=== PATIENT | female | born 1950 | race Caucasian/White ===

== ENCOUNTER → 2016-08-18 | Outpatient (CLI) | payer MEDICARE, BC ==
[~2016-08-18] MED LIST: MULT-65 PO; SALM10002
--- NOTE | 2016-08-18 14:40 | RADRPT ---
EXAM DATE/TIME: 08/18/2016 14:17 [place] COMPARISON: No previous studies available for comparison. INDICATIONS : Evaluate for penumonia, pneumothroax, or communicable disease. Pre op for abdominal mass. MEDICAL HISTORY : None. SURGICAL HISTORY : None. ENCOUNTER: Initial ACUITY: 1 day PAIN SCORE: 0/10 LOCATION: chest FINDINGS: PA and lateral views of the chest demonstrate the lungs to be symmetrically aerated without evidence of mass, infiltrate or effusion. The cardiomediastinal contours are unremarkable. Osseous structure s are intact. CONCLUSION: Normal examination for a patient of this age. Alexander Sandhu MD on August 18, 2016 at 14:38 Board Certified Radiologist. This report was verified electronically.
[2016-08-18 15:11] LABS: AUTOMATED NEUTROPHIL # 3.8 TH/MM3 (1.8-7.7); BASOPHIL % 0.5 % (0.0-2.0); EOSINOPHIL # 0.3 TH/MM3 (0-0.4); EOSINOPHIL % 4.1 % (0.0-4.0); HEMO FLAGS DIFF FINAL; LYMPH % 37.2 % (9.0-44.0); LYMPHOCYTE # 2.8 TH/MM3 (1.0-4.8); MEAN CELL VOLUME 88.3 FL (80.0-100.0); MEAN CORPUSCULAR HEMOGLOBIN 28.4 PG (27.0-34.0); MEAN CORPUSCULAR HGB CONC 32.2 % (32.0-36.0); MONO % 7.3 % (0.0-8.0); NEUT % 50.9 % (16.0-70.0); PLATELET COUNT 268 TH/MM3 (150-450); RED BLOOD COUNT 4.87 MIL/MM3 (4.00-5.30); RED CELL DISTRIBUTION WIDTH 13.5 % (11.6-17.2); WHITE BLOOD COUNT 7.5 TH/MM3 (4.0-11.0)
[2016-08-18 15:16] LABS: BACTERIA, URINE OCC /hpf; BLOOD, URINE NEG (NEG); COMMENT (UR) CULTURE INDICATED; CULTURE IF INDICATED CULTURE INDICATED; GLUCOSE,URINE NEG (NEG); KETONE, URINE NEG (NEG); NITRITE,URINE NEG (NEG); SQUAMOUS EPITHELIAL CELL URINE 3 /hpf (0-5); URINE COLOR YELLOW (YELLW/STRAW)
[2016-08-18 15:25] LABS: ALT (GPT) 26 U/L (10-53); ANION GAP 7 MEQ/L (5-15); AST (GOT) 13 U/L (15-37); BICARBONATE 26.8 MEQ/L (21.0-32.0); BLOOD UREA NITROGEN 15 MG/DL (7-18); CHLORIDE 107 MEQ/L (98-107); GLOMERULAR FILTRATION RATE 56 ML/MIN (>89); POTASSIUM 4.1 MEQ/L (3.5-5.1); SODIUM (NA) 141 MEQ/L (136-145)
[2016-08-18 15:27] LABS: ALKALINE PHOSPHATASE 76 U/L (45-117); TOTAL BILIRUBIN ADULT 0.4 MG/DL (0.2-1.0)
--- NOTE | 2016-08-19 17:40 | EKG ---
Date Performed: 08/18/2016 Time Performed: 13:39:23 PTAGE: 65 years EKG: Sinus rhythm INCOMPLETE RIGHT BUNDLE BRANCH BLOCK BORDERLINE ECG NO PREVIOUS TRACING DOCTOR: Antonietta Sierra Interpretating Date/Time 08/19/2016 17:36:22
== END ==
LOC: CPRE 12:48
PROVIDERS: ATTEND Obstetrics & Gynecology
DX: Z01.812 Encounter for preprocedural laboratory examination (principal); Z01.810 Encounter for preprocedural cardiovascular examination; R19.00 Intra-abdominal and pelvic swelling, mass and lump, unspecified site; R78.89 Finding of other specified substances, not normally found in blood; I45.10 Unspecified right bundle-branch block
CPT/HCPCS: 36415; 71020; 80053; 81001; 85025; 86304; 87086; 93005

== ENCOUNTER 2016-08-25 06:00 | Inpatient (IN) | payer MEDICARE, BC ==
[~2016-08-25] VITALS: Ht 162.6 cm; Wt 95.3 kg
[~2016-08-25 06:00] MED LIST changes: -SALM10002
[2016-08-25] MEDS ORDERED: SALM10002 (06:30)
[2016-08-25] MEDS ORDERED: LACTATED RINGER'S 1000 ML IV PRN (06:30)
[2016-08-25] MEDS ORDERED: SODIUM CHLORID 0.9% 500 ML IV PRN (06:30)
[2016-08-25] MEDS ORDERED: POVIDONE IODINE 5% (ANTISEPSIS KIT) 4 APPLICATIONS EACH NARE PRN (06:30)
[2016-08-25] MEDS ORDERED: METOPROLOL TARTRATE 25 MG TAB PO PRN (06:30)
[2016-08-25] MEDS ORDERED: CHLORHEXIDINE GLUCONATE 2 % 1 PACK (2 CLOTHS) TOPICAL PRN (06:30)
[2016-08-25] MEDS ORDERED: INSULIN HUMAN REGULAR 1,000 UNITS/10 ML VIAL SQ PRN (06:30)
[2016-08-25 06:34] VITALS: BP 102/54; PULSE 77; RESP 16; TEMP 97.9; O2SAT 96
[2016-08-25] MEDS ORDERED: DEXAMETHASONE SOD PHOS 4 MG/ML VIAL ONE (07:25)
[2016-08-25] MEDS ORDERED: MIDAZOLAM HCL 2 MG/2 ML VIAL ONE (07:25)
[2016-08-25] MEDS ORDERED: fentaNYL CITRATE 250 MCG/5 ML AMP ONE (07:25)
[2016-08-25] MEDS ORDERED: ACETAMINOPHEN 1000 MG/100 ML VIAL IV ONE (07:26)
[2016-08-25] MEDS ORDERED: SUGAMMADEX SODIUM 200 MG/2 ML VIAL IV PUSH ONE ×2 (11:48)
[2016-08-25] MEDS ORDERED: LACTATED RINGER'S 1000 ML INJ 2,000 ML IV ONE (12:00)
[2016-08-25] MEDS ORDERED: PROPOFOL 200 MG/20 ML AMP IV ONE (12:00)
[2016-08-25] MEDS ORDERED: ONDANSETRON HCL 4 MG/2 ML VIAL IV PUSH ONE (12:00)
[2016-08-25] MEDS ORDERED: HYDROmorphone HCL PF 2 MG/ML VIAL ONE (12:06)
[2016-08-25] MEDS ORDERED: ZOLPIDEM TARTRATE 5 MG TAB PO PRN (13:15)
[2016-08-25] MEDS ORDERED: ONDANSETRON HCL 4 MG/2 ML VIAL IVP PRN (13:15)
[2016-08-25] MEDS ORDERED: PROMETHAZINE INJ 25 MG/ML VIAL IM PRN (13:15)
[2016-08-25] MEDS ORDERED: PROMETHAZINE HCL 25 MG TAB PO PRN (13:15)
[2016-08-25] MEDS ORDERED: oxyCODONE/ACETAMINOPHEN 5 MG/325 MG TAB PO PRN ×2 (13:15)
[2016-08-25] MEDS ORDERED: diphenhydrAMINE HCL 25 MG CAP PO PRN (13:15)
[2016-08-25] MEDS ORDERED: ONDANSETRON ODT 4 MG TAB PO PRN (13:15)
[2016-08-25] MEDS ORDERED: SODIUM CHLORIDE 0.9% FLUSH 10 ML FLUSH IV FLUSH PRN (13:15)
[2016-08-25] MEDS ORDERED: MORPHINE SULFATE 4 MG/ML INJ ONE (13:39)
--- NOTE | 2016-08-25 13:54 | MP ---
cc: CRISSY BURNETT MD, R. JOHN MD DATE OF SURGERY: 08/25/2016 PREOPERATIVE DIAGNOSIS Large pelvic mass, rule out ovarian malignancy. POSTOPERATIVE DIAGNOSIS Massive adhesions, large peritoneal defect, enlarged left ovary. PROCEDURE 1. Laparoscopic lysis of adhesions, which was extensive. I performed lysis of adhesions for 1-1/[address] Burnett performed lysis of adhesions for 2-1/2 hours. 2. Left ureterolysis. 3. Laparotomy with left salpingo-oophorectomy and repair of a large peritoneal defect with placement of Interceed. COMPLICATIONS A long case, five hours. COUNTS Correct. ESTIMATED BLOOD LOSS 100 cc. FLUIDS Crystalloids. CONDITION The patient tolerated the procedure and went to the recovery room in good condition. DETAILS OF PROCEDURE The patient was taken to the operating room, identified by name band and verbally, given a general anesthetic, prepped and draped in the usual fashion for abdominal surgery. A timeout was taken and all agreed. Once this had been accomplished we placed a sponge stick in the vagina. Examination under anesthesia was carried out. A urinary catheter was placed in the bladder. A small supraumbilical incision was placed approximately 5-6 cm above the umbilicus and a 5 mm trocar was inserted without difficulty. Pneumoperitoneum was created with 3 liters of CO2. At the start of the case there was a large pelvic mass that could be felt. This turned out to be massive adhesions encasing the left ovary completely. We began with giving a second puncture inferior lateral to the umbilicus on the right and a 12 mm trocar on the left. We attempted to do lysis of adhesions which was extensive. After an hour and a half there was some very firm adhesions to the bowel to the anterior abdominal wall and I called a general surgeon in. Dr. Crissy Burnett came in and he will dictate his portion of the surgery. However, he performed over two hours of lysis of adhesions to try to get these adhesions down and make sure there was no hernia, but there was a large peritoneal defect. When he had done the best he could, went back in with the laparoscope and tried to remove that left ovary which was quite large. It was stuck to the pelvic sidewall and we opened up the ureter in this area to avoid injury since it was plastered against the pelvic sidewall and dissected that down around the infundibulopelvic ligament. Once this had been accomplished, I attempted to free up the ovary. There were some very firm adhesions posteriorly and to the pelvic sidewall. After another hour of doing this it was decided this was not going to work. I could not find the right ovary either. We made a Pfannenstiel incision at this point, taken down to the fascia. The fascia was taken off the rectus muscle by blunt and sharp dissection. The rectus muscles were spread bluntly. The bowels were packed back and an O'Petros-O'Mc self-retaining retractor was placed. Indeed there were very firm adhesions around the ovary and these were taken down by blunt dissection using the surgeon's hand. This was quite difficult and took a bit of time. Using scissors, sharp and blunt dissection we did finally free up the ovary. The ovary came out intact. We did use a tenaculum laparoscopically then punctured the ovary; however, I do not think there was any ovarian malignancy present. We used the tenaculum in an effort not to open her but this was not the case. Once we had removed the left ovary we start taking down the adhesions around the right infundibulopelvic ligament. There were massive adhesions there and they were adhesed firmly to the right pelvic sidewall. Again in trying to palpate around the area where the ovary should be I could not feel an ovary or see an ovary in this area. At this point small bleeders were coagulated. Again we tried to move the bowel around to try to find the right ovary. Interestingly the ovary was not seen on the ultrasound nor on the CT scan. I think it may have been removed at the time of hysterectomy 20 years ago. At this point irrigation was again used. We used quite a bit of hydrodissection during the lysis of adhesions, approximately 4 liters worth of fluid. Because of this we straightened her out of Trendelenburg, removed most of the fluid and again checked the bowel continuously. Dr. Pipe Salter stepped in as well to make sure that everything was going okay. I inspected the bowel carefully. There was some serosal abrasions but nothing that went into the muscularis at all. [place] good about this. We grabbed the omentum. The omentum was folded over. We lysed those adhesions to allow the omentum to fully cover the anterior abdominal wall of the abdomen and pelvis. We then placed some Interceed over the omentum and closed the large peritoneal defect with 2-0 Vicryl in a running fashion with excellent results. We also pulled the rectus muscles together with this layer as well. The fascia was then identified and the fascia was closed with a #1 PDS in a running fashion. The subcu was repaired with 2-0 Vicryl and the skin was repaired with 3-0 Vicryl in a subcuticular fashion. The four other laparoscopic ports were also closed with 4-0 Vicryl. She tolerated the procedure well. The case lasted a good 5 hours. She will be admitted to the hospital and watched carefully. R. Maycol Anton MD RJV/BT /1:19 PM /1:38 PM
[2016-08-25] MEDS ORDERED: DO NOT ADM ANY ANTICOAGULANT DRUGS PRN (15:45)
[2016-08-25 16:00] VITALS: BP 138/58; PULSE 101; RESP 16; TEMP 98.3
[2016-08-25] MEDS: HYDROmorphone HCL PF 1 MG/ML VIAL IVP PRN (16:21)
[2016-08-25 20:00] VITALS: BP 113/68; PULSE 96; RESP 18; TEMP 98.1
[2016-08-25] MEDS ORDERED: SODIUM CHLORIDE 0.9% FLUSH 10 ML FLUSH IV FLUSH SCH (21:00)
[2016-08-25] MEDS: LACTATED RINGER'S 1000 ML INJ 1,000 ML IV SCH (21:51)
[2016-08-26] VITALS (8 sets, daily range): BP systolic 106–133; BP diastolic 52–67; PULSE 110–125; RESP 16–20; TEMP 97.7–99.6; O2SAT 95
[2016-08-26] MEDS: HYDROmorphone HCL PF 1 MG/ML VIAL IVP PRN (00:22)
[2016-08-26 06:38] LABS: BICARBONATE 25.4 MEQ/L (21.0-32.0); POTASSIUM 5.2 MEQ/L (3.5-5.1)
[2016-08-26] MEDS: LACTATED RINGER'S 1000 ML INJ 1,000 ML IV SCH (06:43)
[2016-08-26 06:51] LABS: BASOPHIL % 0.1 % (0.0-2.0); EOSINOPHIL % 0.1 % (0.0-4.0); HEMATOCRIT 31.2 % (35.0-46.0); HEMO FLAGS DIFF FINAL; LYMPH % 15.8 % (9.0-44.0); LYMPHOCYTE # 1.9 TH/MM3 (1.0-4.8); MEAN CELL VOLUME 89.8 FL (80.0-100.0); MEAN CORPUSCULAR HEMOGLOBIN 28.9 PG (27.0-34.0); MEAN CORPUSCULAR HGB CONC 32.2 % (32.0-36.0); PLATELET COUNT 263 TH/MM3 (150-450); RED BLOOD COUNT 3.48 MIL/MM3 (4.00-5.30); RED CELL DISTRIBUTION WIDTH 14.2 % (11.6-17.2)
--- NOTE | 2016-08-26 07:54 | HHI.PR ---
Subjective Remarks Doing well, pain is controlled. Tolerating clear liquid diet No chest pain or SOB Some flatus now. No nausea. Objective Vital Signs Date Time Temp Pulse Resp B/P Pulse Ox O2 Delivery O2 Flow Rate FiO2 08/26/16 04:00 99.2 120 20 116/67 08/26/16 00:00 98.3 110 18 106/62 08/25/16 20:00 98.1 96 18 113/68 08/25/16 16:00 98.3 101 16 138/58 08/25/16 15:30 92 16 109/67 97 Nasal Cannula 2 08/25/16 15:00 90 16 104/57 96 Nasal Cannula 2 08/25/16 14:30 86 16 121/56 97 Nasal Cannula 2 08/25/16 14:15 92 16 123/58 96 Nasal Cannula 2 08/25/16 14:00 94 16 123/61 95 Nasal Cannula 3 08/25/16 13:45 86 16 124/64 97 Nasal Cannula 3 08/25/16 13:30 98.8 88 16 110/61 94 Simple Mask 6 I/O 08/25/16 08/25/16 08/25/16 08/26/16 08/26/16 08/26/16 07:00 15:00 23:00 07:00 15:00 23:00 Intake Total 100 ml 600 ml 725 ml Output Total 100 ml 1100 ml Balance 0 ml 600 ml -375 ml Intake Oral 200 ml 200 ml IV Total 100 ml 400 ml 525 ml Output Urine Total 100 ml 1100 ml Result Diagram: 08/26/16 0459 08/26/16 0459 Other Results Chest is clear CV RRR slg tachycardic. Abd is soft, not distended. Fair BS Ext No CCE Assessment and Plan Assessment and Plan POD #1 S/P left SO and massive MEME surgery was 5 hours long Will advance diet slowly and ambulate today. Continue IV fluids. Tachycardic Uncertain etiology will follow. Mane Anton MD Aug 26, 2016 07:54
[2016-08-26] MEDS: IBUPROFEN 600 MG TAB PO PRN ×2 (13:00→19:56)
--- NOTE | 2016-08-26 17:36 | HHI.PR ---
Subjective Subjective Notes Resting in bed Has been OOB twice today Painful but tolerable Objective Vitals/I&O Vital Signs Date Time Temp Pulse Resp B/P Pulse Ox O2 Delivery O2 Flow Rate FiO2 08/26/16 16:00 98.3 125 18 114/63 08/25/16 15:30 97 Nasal Cannula 2 Labs Laboratory Tests Test 08/26/16 04:59 White Blood Count 12.0 Red Blood Count 3.48 Hemoglobin 10.1 Hematocrit 31.2 Mean Corpuscular Volume 89.8 Mean Corpuscular Hemoglobin 28.9 Mean Corpuscular Hemoglobin 32.2 Concent Red Cell Distribution Width 14.2 Platelet Count 263 Mean Platelet Volume 8.3 Neutrophils (%) (Auto) 75.0 Lymphocytes (%) (Auto) 15.8 Monocytes (%) (Auto) 9.0 Eosinophils (%) (Auto) 0.1 Basophils (%) (Auto) 0.1 Neutrophils # (Auto) 9.0 Lymphocytes # (Auto) 1.9 Monocytes # (Auto) 1.1 Eosinophils # (Auto) 0.0 Basophils # (Auto) 0.0 CBC Comment DIFF FINAL Differential Comment Sodium Level 143 Potassium Level 5.2 Chloride Level 110 Carbon Dioxide Level 25.4 Anion Gap 8 Blood Urea Nitrogen 18 Creatinine 1.13 Estimat Glomerular Filtration 48 Rate Random Glucose 129 Calcium Level 7.5 Cardiovascular: Regular Lungs: Clear Abdomen: Other (soft; tender to palpation ) Extremities: No edema A/P Assessment and Plan 65 year old female POD1 LEFT SO (Dr. Anton) and extensive MEME (Dr. Burnett) -Tolerating clears -OOB and mobilize -IS -Pain control -SCDs Aleida Landaverde Aug 26, 2016 17:36
[2016-08-27] MEDS: LACTATED RINGER'S 1000 ML INJ 1,000 ML IV SCH (03:06)
[2016-08-27 03:15] VITALS: BP 105/66; PULSE 103; RESP 16; TEMP 98.5; O2SAT 95
--- NOTE | 2016-08-27 07:28 | HHI.PR ---
Subjective Remarks Doing well, pain is controlled. Tolerating clear liquid diet No chest pain or SOB good flatus and hungry. Objective Vital Signs Date Time Temp Pulse Resp B/P Pulse Ox O2 Delivery O2 Flow Rate FiO2 08/27/16 03:15 98.5 103 16 105/66 95 08/26/16 23:35 90 Nasal Cannula 2.00 08/26/16 23:20 98.9 112 16 114/59 08/26/16 22:10 99.5 95 08/26/16 19:30 99.4 125 20 121/59 08/26/16 16:00 98.3 125 18 114/63 08/26/16 12:40 99.6 125 18 116/52 I/O 08/26/16 08/26/16 08/26/16 08/27/16 08/27/16 08/27/16 07:00 15:00 23:00 07:00 15:00 23:00 Intake Total 725 ml 1730 ml Output Total 1100 ml 200 ml 1175 ml 900 ml Balance -375 ml -200 ml -1175 ml 830 ml Intake Oral 200 ml 530 ml IV Total 525 ml 1200 ml Output Urine Total 1100 ml 200 ml 1175 ml 900 ml # Bowel Movements 0 Result Diagram: 08/26/16 0459 08/26/16 0459 Objective Remarks Chest is clear CV RRR still slg tachycardic but improving ABd is soft and surgically tender. good BS today There are blisters under the steristrips today...allergic rx Ext no cce Assessment and Plan Assessment and Plan POD #2 S/P left SO and massive MEME surgery was 5 hours long Will advance diet and shower today D/C IV fluids Anemia will start fe soon. Mane Anton MD Aug 27, 2016 07:28
[2016-08-27 07:30] VITALS: PULSE 107; RESP 16; TEMP 98.3; O2SAT 95
[2016-08-27] MEDS: IBUPROFEN 600 MG TAB PO PRN ×2 (10:45→22:59)
[2016-08-27 12:30] VITALS: BP 129/71; PULSE 108; RESP 16; TEMP 98.3; O2SAT 96
[2016-08-27 16:30] VITALS: BP 126/69; PULSE 93; RESP 16; TEMP 98.7; O2SAT 99
--- NOTE | 2016-08-27 17:07 | HHI.PR ---
Subjective Subjective Notes Ambulating in room No issues Objective Vitals/I&O Vital Signs Date Time Temp Pulse Resp B/P Pulse Ox O2 Delivery O2 Flow Rate FiO2 08/27/16 12:30 98.3 108 16 96 08/27/16 03:15 105/66 08/26/16 23:35 Nasal Cannula 2.00 Cardiovascular: Regular Lungs: Clear Abdomen: Non-distended, Other (incisions c/d/i ) Extremities: No edema A/P Assessment and Plan 65 year old female POD2 LEFT SO (Dr. Anton) and extensive MEME (Dr. Burnett) -Tolerating regular diet -Abd binder -OOB and mobilize -IS -Pain control -SCDs Aleida Landaverde Aug 27, 2016 17:07
[2016-08-27 19:40] VITALS: BP 133/77; PULSE 105; RESP 20; TEMP 98.5; O2SAT 99
[2016-08-28 08:00] VITALS: BP 123/76; PULSE 84; RESP 16; TEMP 98.1
--- NOTE | 2016-08-28 13:01 | HHI.PR ---
Subjective Remarks Doing well, pain is controlled. Tolerating diet well. No chest pain or SOB good BM today Objective Vital Signs Date Time Temp Pulse Resp B/P Pulse Ox O2 Delivery O2 Flow Rate FiO2 08/28/16 08:00 98.1 84 16 123/76 08/27/16 21:20 Room Air 08/27/16 19:40 98.5 105 20 133/77 99 08/27/16 16:30 98.7 93 16 126/69 99 I/O 08/27/16 08/27/16 08/27/16 08/28/16 08/28/16 08/28/16 06:59 14:59 22:59 06:59 14:59 22:59 Intake Total 1730 ml Output Total 900 ml Balance 830 ml Intake Oral 530 ml IV Total 1200 ml Output Urine Total 900 ml # Bowel Movements 0 Result Diagram: 08/26/16 0459 08/26/16 0459 Objective Remarks Chest is clear CV RRR still slg tachycardic but improving ABd is soft and surgically tender. 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 Home today. Mane Anton MD Aug 28, 2016 13:01
--- NOTE | 2016-08-28 13:21 | HHI.DCPOC ---
Discharge Care Plan Diagnosis: (1) S/P oophorectomy Report Symptoms to Your Doctor -Temperature above 100.5 degrees -Redness, of incision or excessive or foul smelling drainage -Unusual pain or calf pain -Increased vaginal bleeding -Painful or difficulty urinating -Feelings of extreme sadness or anxiety after 2 weeks Goals to Promote Your Health * To prevent worsening of your condition and complications * To maintain your health at the optimal level Directions to Meet Your Goals Take your medications as prescribed Follow your dietary instruction Follow activity as directed Ensure plenty of rest for recovery Drink fluids for hydration Keep your appointments as scheduled Take your immunizations and boosters as scheduled If your symptoms worsen call your PCP, if no PCP go to Urgent Care Center or Emergency Room Smoking is Dangerous to Your Health. Avoid second hand smoke Call the 24-hour crisis hotline for domestic abuse at Mane Anton MD Aug 28, 2016 13:21
--- NOTE | 2016-08-31 06:11 | MP ---
cc: SILVIA ANTON LARS S. MD DATE OF SURGERY 08/25/2016 PREOPERATIVE DIAGNOSES Pelvic mass. Multiple masses. Abdominal adhesions. POSTOPERATIVE DIAGNOSES Pelvic mass. Multiple masses. Abdominal adhesions. PROCEDURE PERFORMED Laparoscopic lysis of adhesions greater than 2-1/[address] Chirag Burnett [employer] Dr. Silvia Anton COMPLICATIONS None. WOUND CLASSIFICATION Clean. ESTIMATED BLOOD LOSS 100 cc. DRAINS None. CONDITION Patient stable to PACU. FINDINGS Multiple adhesions to the lower pelvis, anterior peritoneum. Large left ovary. IV FLUIDS See anesthesia sheet. ANESTHESIA GETA. SPECIMENS None. INDICATION The patient is a 65-year-old female who presented with concern for intraabdominal mass of pelvic pathology. The patient was already intubated in the OR with intraoperative consult to general surgery for assistance with lysis of adhesions and assistance in exposure of the ovaries with possible ovarian mass and large peritoneal defect. DETAILS OF PROCEDURE The patient had already been intubated, placed in supine position and had undergone an operative time-out. She had already been prepped and padded and already placed in Trendelenburg position. Consultation to myself for assistance and identification of the ovaries as there were multiple adhesions to the small bowel and a portion of sigmoid colon. Further, there was a peritoneal defect needing assistance for closure. Two ports, 5 mm, were already placed. Two other ports were placed, one in the left lower quadrant, 12-mm port, followed by a right mid 5-mm port. Meticulous dissection continued to assist in achieving mobilization of the small bowel which was intimately adhered down in the pelvis. With the assistance of harmonic scalpel and primarily Endoshears, continued lysis of adhesions for mobilization and identification. The anterior peritoneum was reflected downwards and this was done in somewhat of a lateral to medial direction. Upon further dissection, the left ovary was identified and noted to be significantly enlarged and down in the left lower pelvis. At this point also further dissection to the right lower pelvis was done in order to again further mobilize and expose the right ovary as well. The right ovary was not successful in being identified. The case was again transferred back to Dr. Anton for continued removal of enlarged left ovary. After further attempts and approximate 5-hour case duration, decision at this point was made to convert to an open exploration. Completion of the procedure was done by Dr. Anton. Dr. Anton to dictate his portion of the procedure. The patient tolerated the procedure well. There was no intraoperative complication. All lap and instrument counts were correct at the end of the procedure. MD BALTAZAR Jarquin/UNA /9:04 PM /6:04 AM
== END 2016-08-28 14:10 | disposition home or self-care (01) | DRG 743 ==
LOC: HSDC 06:00 → EDUNIT# 08:00 → H1EA 15:50
PROVIDERS: ADMIT Obstetrics & Gynecology; ATTEND Obstetrics & Gynecology
PROC: 0UN14ZZ Release Left Ovary, Percutaneous Endoscopic Approach (ICD-10-PCS; 2016-08-25)
PROC: 0WUF0JZ Supplement Abdominal Wall with Synthetic Substitute, Open Approach (ICD-10-PCS; 2016-08-25)
PROC: 0UT60ZZ Resection of Left Fallopian Tube, Open Approach (ICD-10-PCS; 2016-08-25)
PROC: 0TN78ZZ Release Left Ureter, Via Natural or Artificial Opening Endoscopic (ICD-10-PCS; 2016-08-25)
PROC: 0DN84ZZ Release Small Intestine, Percutaneous Endoscopic Approach (ICD-10-PCS; 2016-08-25)
PROC: 0DNT0ZZ (ICD-10-PCS; principal; 2016-08-25 08:03)
PROC: 0UT10ZZ Resection of Left Ovary, Open Approach (ICD-10-PCS; 2016-08-25 08:03)
DX: D27.1 Benign neoplasm of left ovary (principal); E66.9 Obesity, unspecified; D64.9 Anemia, unspecified; N73.6 Female pelvic peritoneal adhesions (postinfective); Z53.31 Laparoscopic surgical procedure converted to open procedure; R00.0 Tachycardia, unspecified; S30.821A Blister (nonthermal) of abdominal wall, initial encounter; Y84.9 Medical procedure, unspecified as the cause of abnormal reaction of the patient, or of later complication, without mention of misadventure at the time of the procedure; Y92.239 Unspecified place in hospital as the place of occurrence of the external cause; Z68.36 Body mass index [BMI] 36.0-36.9, adult
CPT/HCPCS: 80048; 85025; 88112; 88305; 88307; 94150; C1765; J0131; J1100; J1170; J2250; J2270; J2405; J2550; J3010; J7120

== ENCOUNTER 2016-09-04 19:36 | Inpatient (IN) | payer MEDICARE, BC ==
[~2016-09-04] VITALS: Ht 162.6 cm; Wt 94.5 kg
[~2016-09-04 19:36] MED LIST changes: +SALM10002
[2016-09-04 19:38] VITALS: BP 134/87; PULSE 119; RESP 16; TEMP 100.2; O2SAT 98
[2016-09-04] MEDS ORDERED: SODIUM CHLOR 0.9% 1000 ML INJ 1,000 ML IV SCH ×2 (20:37→21:57)
[2016-09-04 20:42] VITALS: BP 148/72; PULSE 112; RESP 16; O2SAT 98
[2016-09-04] MEDS ORDERED: VANCOMYCIN INJ 1,000 MG in SODIUM CHLOR 0.9% 250 ML INJ 250 ML IV ONE (21:00)
[2016-09-04] MEDS ORDERED: PIPERACIL-TAZO 3.375 GM PREMIX 50 ML IV ONE (21:00)
--- NOTE | 2016-09-04 21:26 | PD ---
HPI Chief Complaint: Fever Time Seen by Provider: 21:25 Travel History International Travel<30 days: No Contact w/Intl Traveler<30days: No Traveled to known affect area: No History of Present Illness HPI 65-year-old female that presents to the ED for evaluation of fever and bleeding. 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 This was removed and he appeared to be benign. Per patient she had also surgery by Dr. Burnett at the same time for additions as well as Dr. Llanes. She is not that ever since the surgery she's had chills but no actual fever. She only came today because she had bleeding from one of the openings on the right lower quadrant. Per patient she's been doing what she is supposed to but she is concerned that is getting worse. Per patient the pain is 5 out of 10 but she is not too concerned about it. Per patient she is more concerned about the bleeding. She also noted today when she was here that she had a fever. She denies any nausea or vomiting other than yesterday. No bowel movement issues sustained that she had a bowel movement today. No urinary symptoms. No cough or runny nose. No sick contacts. She has not contacted her surgeon since this happened. PFSH Past Medical History Cancer: No Cardiovascular Problems: No Diabetes: No Endocrine: No Genitourinary: No Hepatitis: No Hiatal Hernia: No Immune Disorder: No Musculoskeletal: No Neurologic: No Psychiatric: No Reproductive: Yes (MASS) Respiratory: No Thyroid Disease: No ?: Not Past Surgical History Abdominal Surgery: No AICD: No Body Medical Devices: RIGHT BREAST MARKER Cardiac Surgery: No Ear Surgery: No Endocrine Surgery: No Eye Surgery: No Genitourinary Surgery: No Gynecologic Surgery: Yes (HYSTERECTOMY, BREAST BIOPSY RIGHT) Joint Replacement: No Oral Surgery: Yes (TEETH REMOVAL, TONSILLECTOMY) Pacemaker: No Thoracic Surgery: No Other Surgery: Yes Social History Alcohol Use: Yes Tobacco Use: No Substance Use: No Allergies-Medications (Allergen,Severity, Reaction): Coded Allergies: No Known Allergies (Unverified , 09/04/16) Reported Meds & Prescriptions Reported Meds & Active Scripts Active Reported [place] Oil (Nutritional Supplements) 1 Cap Cap Multi-Vitamin Daily (Multiple Vitamin) 1 Tab Tab 1 Tab PO DAILY Review of Systems Except as stated in HPI: all other systems reviewed are Neg Physical Exam Narrative GENERAL: SKIN: Warm and dry. HEAD: Atraumatic. Normocephalic. EYES: Pupils equal and round. No scleral icterus. No injection or drainage. ENT: No nasal bleeding or discharge. Mucous membranes pink and moist. Tongue is midline. No uvula deviation. NECK: Trachea midline. No JVD. CARDIOVASCULAR: Regular rate and rhythm. No murmurs, S3, S4. RESPIRATORY: No accessory muscle use. Clear to auscultation. Breath sounds equal bilaterally. GASTROINTESTINAL: Abdomen soft, slightly tender on the right lower quadrant which she has a 3 cm surgical wound with induration and erythema. Some bleeding coming from the wound itself. No purulence. She does have other surgical wounds one on the left lower quadrant that has bruising noted but no erythema or induration, nondistended. Hepatic and splenic margins not palpable. MUSCULOSKELETAL: Extremities without clubbing, cyanosis, or edema. No obvious deformities. Full range of motion of the upper and lower extremities bilaterally. Pupils pulses bilaterally. NEUROLOGICAL: Awake and alert. No obvious cranial nerve deficits. Motor grossly within normal limits. Five out of 5 muscle strength in the arms and legs. Normal speech. PSYCHIATRIC: Appropriate mood and affect; insight and judgment normal. Data Data Last Documented VS Vital Signs Date Time Temp Pulse Resp B/P Pulse Ox O2 Delivery O2 Flow Rate FiO2 09/04/16 22:45 99.6 09/04/16 20:45 109 16 95 Room Air 09/04/16 20:42 148/72 Orders Complete Blood Count With Diff (09/04/16 20:37) Comprehensive Metabolic Panel (09/04/16 20:37) Lipase (09/04/16 20:37) Lactic Acid (09/04/16 20:37) Prothrombin Time / Inr (Pt) (09/04/16 20:37) Act Partial Throm Time (Ptt) (09/04/16 20:37) Urinalysis - C+S If Indicated (09/04/16 20:37) Ct Abd/Pel W Iv Contrast(Rout) (09/04/16 20:37) Iv Access Insert/Monitor (09/04/16 20:37) Ecg Monitoring (09/04/16 20:37) Sodium Chlor 0.9% 1000 Ml Inj (Ns 1000 M (09/04/16 20:37) Vancomycin Inj (Vancomycin Inj) (09/04/16 21:00) Piperacil-Tazo 3.375 Gm Premix (Zosyn 3. (09/04/16 21:00) Wound Culture And Gram Stain (09/04/16 21:03) Blood Culture (09/04/16 21:03) Acetaminophen (Tylenol) (09/04/16 21:30) Sodium Chlor 0.9% 1000 Ml Inj (Ns 1000 M (09/04/16 21:57) Iohexol 350 Inj (Omnipaque 350 Inj) (09/04/16 22:16) Urine Culture (09/04/16 22:10) Admit Order (Ed Use Only) (09/04/16 23:01) Labs Laboratory Tests Test 09/04/16 09/04/16 20:54 22:10 White Blood Count 12.3 TH/MM3 Red Blood Count 3.82 MIL/MM3 Hemoglobin 11.0 GM/DL Hematocrit 33.1 % Mean Corpuscular Volume 86.6 FL Mean Corpuscular Hemoglobin 28.9 PG Mean Corpuscular Hemoglobin 33.3 % Concent Red Cell Distribution Width 13.4 % Platelet Count 507 TH/MM3 Mean Platelet Volume 6.8 FL Neutrophils (%) (Auto) 79.3 % Lymphocytes (%) (Auto) 12.1 % Monocytes (%) (Auto) 7.5 % Eosinophils (%) (Auto) 0.7 % Basophils (%) (Auto) 0.4 % Neutrophils # (Auto) 9.8 TH/MM3 Lymphocytes # (Auto) 1.5 TH/MM3 Monocytes # (Auto) 0.9 TH/MM3 Eosinophils # (Auto) 0.1 TH/MM3 Basophils # (Auto) 0.0 TH/MM3 CBC Comment DIFF FINAL Differential Comment Prothrombin Time 10.6 SEC Prothromb Time International 1.0 RATIO Ratio Activated Partial 25.7 SEC Thromboplast Time Sodium Level 132 MEQ/L Potassium Level 3.9 MEQ/L Chloride Level 99 MEQ/L Carbon Dioxide Level 26.3 MEQ/L Anion Gap 7 MEQ/L Blood Urea Nitrogen 18 MG/DL Creatinine 1.08 MG/DL Estimat Glomerular Filtration 51 ML/MIN Rate Random Glucose 121 MG/DL Lactic Acid Level 1.3 mmol/L Calcium Level 8.9 MG/DL Total Bilirubin 0.9 MG/DL Aspartate Amino Transf 23 U/L (AST/SGOT) Alanine Aminotransferase 21 U/L (ALT/SGPT) Alkaline Phosphatase 88 U/L Total Protein 7.5 GM/DL Albumin 3.4 GM/DL Lipase 202 U/L Urine Color YELLOW Urine Turbidity HAZY Urine pH 6.5 Urine Specific [place] 1.018 Urine Protein TRACE mg/dL Urine Glucose (UA) NEG mg/dL Urine Ketones NEG mg/dL Urine Occult Blood MOD Urine Nitrite NEG Urine Bilirubin NEG Urine Urobilinogen LESS THAN 2.0 MG/DL Urine Leukocyte Esterase LARGE Urine RBC 6 /hpf Urine WBC 40 /hpf Urine Squamous Epithelial 3 /hpf Cells Urine Bacteria FEW /hpf Urine Mucus FEW /lpf Microscopic Urinalysis Comment CULTURE INDICATED MDM Medical Decision Making Medical Screen Exam Complete: Yes Emergency Medical Condition: Yes Medical Record Reviewed: Yes Interpretation(s) CBC & BMP Diagram 09/04/16 20:54 Last Impressions Abdomen/Pelvis CT 09/04/162036 Signed Impressions: Service Date/Time: Tuesday, September 04, 2016 22:13 - CONCLUSION: 1. Large complex fluid collection along the anterior, wall musculature where patient has had recent surgery. There are drops of air within the fluid collection and within the adjacent soft tissues. This is likely related to postsurgical changes/seroma although hematoma and abscess are also included in the differential. 2. Extensive diverticulosis with minimal fluid in the pelvis, likely from hysterectomy. Minimal degree of diverticulitis cannot be excluded but felt to be less likely. Bairon Claire MD Differential Diagnosis Abdominal pain versus cellulitis versus abscess versus wound infection versus fever after surgery versus sepsis Narrative Course 65-year-old female that presents to the ED for evaluation of possible fever as well as bleeding from surgical wound. Patient was properly examined and was found to have signs and symptoms concerning for infection. Patient does have a low-grade fever 100.2. She is not tachycardic. She does appear to have possible infection of the surgical wound on the right lower quadrant. At this time I recommend labs and imaging. Case was discussed in my attending Dr. Redding about the patient with me and recommends starting antibiotics. Case was discussed with Dr Melgoza from [employer] [facility] for Dr Almaguer who recommends imaging and call her back with results. Labs and imaging showed fluid build up on the abdomen which could be either hematoma, seroma, abscess. Patient still tachycardic and has signs of sepsis. Recommendation this time is for admission for IV antibiotics. This was discussed with Dr Melgoza who agrees with plan, wants me to admit to medicine with consults to her and Dr Burnett. Spoke with Dr Zaragoza who states that since this is a post op complication surgeon needs to be the admitting physician. I spoke with Dr Melgoza who states that she prefers that either Dr Burnett or Medicine admit. This was conveyed to my attending Dr Redding who spoke with Dr. Zaragoza for admission. Walt Valenzuela Sep 04, 2016 21:26
[2016-09-04] MEDS ORDERED: ACETAMINOPHEN 325 MG TAB PO ONE (21:30)
[2016-09-04 21:34] LABS: AUTOMATED NEUTROPHIL # 9.8 TH/MM3 (1.8-7.7); BASOPHIL % 0.4 % (0.0-2.0); EOSINOPHIL # 0.1 TH/MM3 (0-0.4); EOSINOPHIL % 0.7 % (0.0-4.0); HEMATOCRIT 33.1 % (35.0-46.0); HEMO FLAGS DIFF FINAL; LYMPH % 12.1 % (9.0-44.0); LYMPHOCYTE # 1.5 TH/MM3 (1.0-4.8); MEAN CELL VOLUME 86.6 FL (80.0-100.0); MEAN CORPUSCULAR HEMOGLOBIN 28.9 PG (27.0-34.0); MEAN CORPUSCULAR HGB CONC 33.3 % (32.0-36.0); MONO % 7.5 % (0.0-8.0); NEUT % 79.3 % (16.0-70.0); PLATELET COUNT 507 TH/MM3 (150-450); RED BLOOD COUNT 3.82 MIL/MM3 (4.00-5.30); RED CELL DISTRIBUTION WIDTH 13.4 % (11.6-17.2); WHITE BLOOD COUNT 12.3 TH/MM3 (4.0-11.0)
[2016-09-04 21:45] LABS: APTT (PATIENT) 25.7 SEC (24.3-30.1); PROTHROMBIN TIME - PATIENT 10.6 SEC (9.8-11.6)
[2016-09-04 21:54] LABS: ANION GAP 7 MEQ/L (5-15); AST (GOT) 23 U/L (15-37); BICARBONATE 26.3 MEQ/L (21.0-32.0); BLOOD UREA NITROGEN 18 MG/DL (7-18); CHLORIDE 99 MEQ/L (98-107); GLOMERULAR FILTRATION RATE 51 ML/MIN (>89); POTASSIUM 3.9 MEQ/L (3.5-5.1); SODIUM (NA) 132 MEQ/L (136-145)
[2016-09-04 21:57] LABS: ALKALINE PHOSPHATASE 88 U/L (45-117); ALT (GPT) 21 U/L (10-53); TOTAL BILIRUBIN ADULT 0.9 MG/DL (0.2-1.0)
[2016-09-04] MEDS ORDERED: IOHEXOL 350 MG/ML 10 ML VIAL (for RAD DIAG) IV ONE (22:16)
--- NOTE | 2016-09-04 22:30 | RADRPT ---
EXAM DATE/TIME: 09/04/2016 22:13 [facility] COMPARISON: No previous studies available for comparison. INDICATIONS : Abdominal mass removed August 25; patient complains of bleeding from her incision site. IV CONTRAST: 97 cc Omnipaque 350 (iohexol) IV ORAL CONTRAST: No oral contrast ingested. RADIATION DOSE: 15.88 CTDIvol (mGy) MEDICAL HISTORY : None SURGICAL HISTORY : Hysterectomy. ENCOUNTER: Initial ACUITY: 1 day PAIN SCALE: 4/10 LOCATION: abdomen/pelvis TECHNIQUE: Volumetric scanning of the abdomen and pelvis was performed. Using automated exposure control and ad justment of the mA and/or kV according to patient size, radiation dose was kept as low as reasonably achievable to obtain optimal diagnostic quality images. DICOM format image data is available electro nically for review and comparison. FINDINGS: LOWER LUNGS: The visualized lower lungs are clear. LIVER: Homogeneous density without lesion. There is no dilation of the biliary tree. No calcified gallston es. SPLEEN: Normal size without lesion. PANCREAS: Within normal limits. KIDNEYS: Normal in size and shape. There is no mass, stone or hydronephrosis. ADRENAL GLANDS: Within normal limits. VASCULAR: There is no aortic aneurysm. BOWEL/MESENTERY: Extensive diverticulosis of the descending and sigmoid colon. Minimal fluid in the pelvis.. There is no free intraperitoneal air or fluid. ABDOMINAL WALL: Complex fluid collection along the anterior abdominal wall musculature measuring 12.7 x 4.4 cm. Multi ple drops of air. There is also drops of air and induration within the soft tissues.. RETROPERITONEUM: There is no lymphadenopathy. BLADDER: No wall thickening or mass. REPRODUCTIVE: Hysterectomy. INGUINAL: There is no lymphadenopathy or hernia. MUSCULOSKELETAL: Within normal limits for patient age. CONCLUSION: 1. Large complex fluid collection along the anterior, wall musculature where patient has had recent s urgery. There are drops of air within the fluid collection and within the adjacent soft tissues. This is likely related to postsurgical changes/seroma although hematoma and abscess are also included in the differential. 2. Extensive diverticulosis with minimal fluid in the pelvis, likely from hysterectomy. Minimal degre e of diverticulitis cannot be excluded but felt to be less likely. Bairon Claire MD on September 04, 2016 at 22:23 Board Certified Radiologist. This report was verified electronically.
[2016-09-04 22:45] VITALS: TEMP 99.6
[2016-09-04 22:45] LABS: BACTERIA, URINE FEW /hpf; BLOOD, URINE MOD (NEG); GLUCOSE,URINE NEG (NEG); KETONE, URINE NEG (NEG); MUCUS URINE FEW /lpf (OCC); NITRITE,URINE NEG (NEG); PH, URINE 6.5 (5.0-8.5); SQUAMOUS EPITHELIAL CELL URINE 3 /hpf (0-5); URINE COLOR YELLOW (YELLW/STRAW)
[2016-09-04 22:51] LABS: COMMENT (UR) CULTURE INDICATED; CULTURE IF INDICATED CULTURE INDICATED
--- NOTE | 2016-09-04 23:13 | PD ---
Physical Exam Narrative I, Dr. Redding, have reviewed the advance practice practitioner's documentation and am in agreement, met with the patient face to face, made the diagnosis, and the medical decision making was done by me. *My assessment and Findings: Cellulitis vs. abscess vs. bleeding vs. seroma 65yo F with recent surgery by OBGYN Dr. Anton on 08/25/16 presents to the ED with c/o bleeding and pain around her surgical site today. States she has been feeling chills but no documented fever. Had episode of vomiting yesterday. Denies any chest pain, sob, current nausea. States pain has been there since the surgery. Pt does have mild induration in right lower abdominal wound with tenderness to palpation around wound. No purulent discharge. No bleeding at this time. Pt presented with temp of 100.2F and tachycardic at 119bpm. Labs reviewed, leukocytosis at 12.3. Lactic acid normal at 1.3. UA showed large leukocyte. WBC 40. Pt was already empirically given vancomycin and zosyn. Pt also given NS IVF and acetaminophen. CTa/p showed large complex fluid collection along the anterior wall musculature that could be related to postsurgical changes/seroma although hematoma and abscess are also included in the differential. This was communicated with Dr. Melgoza who is covering Dr. Anton by my PA. She wanted medicine admission and [facility] consult. I discussed with Dr. Zaragoza who has accepted the pt to her service. Data Data Last Documented VS Vital Signs Date Time Temp Pulse Resp B/P Pulse Ox O2 Delivery O2 Flow Rate FiO2 09/04/16 22:45 99.6 09/04/16 20:45 109 16 95 Room Air 09/04/16 20:42 148/72 Orders Complete Blood Count With Diff (09/04/16 20:37) Comprehensive Metabolic Panel (09/04/16 20:37) Lipase (09/04/16 20:37) Lactic Acid (09/04/16 20:37) Prothrombin Time / Inr (Pt) (09/04/16 20:37) Act Partial Throm Time (Ptt) (09/04/16 20:37) Urinalysis - C+S If Indicated (09/04/16 20:37) Ct Abd/Pel W Iv Contrast(Rout) (09/04/16 20:37) Iv Access Insert/Monitor (09/04/16 20:37) Ecg Monitoring (09/04/16 20:37) Sodium Chlor 0.9% 1000 Ml Inj (Ns 1000 M (09/04/16 20:37) Vancomycin Inj (Vancomycin Inj) (09/04/16 21:00) Piperacil-Tazo 3.375 Gm Premix (Zosyn 3. (09/04/16 21:00) Wound Culture And Gram Stain (09/04/16 21:03) Blood Culture (09/04/16 21:03) Acetaminophen (Tylenol) (09/04/16 21:30) Sodium Chlor 0.9% 1000 Ml Inj (Ns 1000 M (09/04/16 21:57) Iohexol 350 Inj (Omnipaque 350 Inj) (09/04/16 22:16) Urine Culture (09/04/16 22:10) Admit Order (Ed Use Only) (09/04/16 23:01) Labs Laboratory Tests Test 09/04/16 09/04/16 20:54 22:10 White Blood Count 12.3 TH/MM3 Red Blood Count 3.82 MIL/MM3 Hemoglobin 11.0 GM/DL Hematocrit 33.1 % Mean Corpuscular Volume 86.6 FL Mean Corpuscular Hemoglobin 28.9 PG Mean Corpuscular Hemoglobin 33.3 % Concent Red Cell Distribution Width 13.4 % Platelet Count 507 TH/MM3 Mean Platelet Volume 6.8 FL Neutrophils (%) (Auto) 79.3 % Lymphocytes (%) (Auto) 12.1 % Monocytes (%) (Auto) 7.5 % Eosinophils (%) (Auto) 0.7 % Basophils (%) (Auto) 0.4 % Neutrophils # (Auto) 9.8 TH/MM3 Lymphocytes # (Auto) 1.5 TH/MM3 Monocytes # (Auto) 0.9 TH/MM3 Eosinophils # (Auto) 0.1 TH/MM3 Basophils # (Auto) 0.0 TH/MM3 CBC Comment DIFF FINAL Differential Comment Prothrombin Time 10.6 SEC Prothromb Time International 1.0 RATIO Ratio Activated Partial 25.7 SEC Thromboplast Time Sodium Level 132 MEQ/L Potassium Level 3.9 MEQ/L Chloride Level 99 MEQ/L Carbon Dioxide Level 26.3 MEQ/L Anion Gap 7 MEQ/L Blood Urea Nitrogen 18 MG/DL Creatinine 1.08 MG/DL Estimat Glomerular Filtration 51 ML/MIN Rate Random Glucose 121 MG/DL Lactic Acid Level 1.3 mmol/L Calcium Level 8.9 MG/DL Total Bilirubin 0.9 MG/DL Aspartate Amino Transf 23 U/L (AST/SGOT) Alanine Aminotransferase 21 U/L (ALT/SGPT) Alkaline Phosphatase 88 U/L Total Protein 7.5 GM/DL Albumin 3.4 GM/DL Lipase 202 U/L Urine Color YELLOW Urine Turbidity HAZY Urine pH 6.5 Urine Specific [place] 1.018 Urine Protein TRACE mg/dL Urine Glucose (UA) NEG mg/dL Urine Ketones NEG mg/dL Urine Occult Blood MOD Urine Nitrite NEG Urine Bilirubin NEG Urine Urobilinogen LESS THAN 2.0 MG/DL Urine Leukocyte Esterase LARGE Urine RBC 6 /hpf Urine WBC 40 /hpf Urine Squamous Epithelial 3 /hpf Cells Urine Bacteria FEW /hpf Urine Mucus FEW /lpf Microscopic Urinalysis Comment CULTURE INDICATED MDM Supervised Visit with MIHAELA: Yes Diagnosis Primary Impression: Post-operative complication Qualified Code: L76.82 - Postoperative surgical complication involving subcutaneous tissue associated with non-dermatologic procedure, unspecified complication Admitting Information Admitting Physician Requests: Observation Jessica Redding DO Sep 04, 2016 23:13
[2016-09-04] MEDS ORDERED: BISACODYL 10 MG SUPP RECTAL PRN (23:15)
[2016-09-04] MEDS ORDERED: ONDANSETRON HCL 4 MG/2 ML VIAL IVP PRN (23:15)
[2016-09-04] MEDS ORDERED: MORPHINE SULFATE 4 MG/ML INJ IV PRN (23:15)
[2016-09-04] MEDS ORDERED: ACETAMINOPHEN 325 MG TAB PO PRN (23:15)
[2016-09-04] MEDS ORDERED: LACTULOSE SYRUP 20 GM/30 ML CUP PO PRN (23:15)
[2016-09-04] MEDS ORDERED: ACETAMINOPHEN/HYDROcodone 325 MG/5 MG TAB PO PRN (23:15)
[2016-09-04] MEDS ORDERED: MAGNESIUM HYDROXIDE SUSP 30 ML CUP PO PRN (23:15)
[2016-09-04] MEDS ORDERED: SODIUM CHLORIDE 0.9% FLUSH 10 ML FLUSH IV FLUSH PRN (23:15)
[2016-09-04] MEDS ORDERED: Vancomycin Consult Pharmacy 1 EA OTHER SCH (23:15)
[2016-09-04] MEDS ORDERED: SENNOSIDES 8.6 MG TAB PO PRN (23:15)
--- NOTE | 2016-09-04 23:23 | HHI.HP ---
HPI Service [facility] Hospitalists Primary Care Physician Tk Barry MD Admission Diagnosis Post surgical complication Diagnoses: (1) Sepsis Diagnosis: Principal (2) Post-operative complication Diagnosis: Principal (3) UTI (urinary tract infection) Diagnosis: Principal (4) Renal insufficiency Diagnosis: Principal Travel History International Travel<30 Days: No Contact w/Intl Traveler <30 Da: No Traveled to Known Affected Are: No History of Present Illness This is a 65-year-old female with no significant PMH who presented to the ER with complaints of abdominal pain and fever x1 day. Found to have large benign pelvic mass, s/p Left Salpingo-oophorectomy w/ Dr. Anton and Lysis of Adhesions by Dr. Burnett on 08/25/16. Had been doing well post-op until yesterday , now w/ progressive abdominal pain and intermittent nausea/vomiting. Also notes bleeding from Lap site w/ standing/movement. On arrival, BP 134/87, HR 119, O2 sat 98% on RA, Temp 100.2. WBC 12.3. Hemoglobin 11. Chemistry unremarkable except for creatinine 1.08, previously 1.13 on 08/26/16. GFR 51. Lactic Acid normal. U/a positive for UTI. CT Abd/Pelvis w/ large complex fluid collection likely related to postsurgical changes/seroma, possibly hematoma or abscess. Dr. Melgoza contacted by ER physician for admission, however admission declined and [facility] asked to admit. S/p Blood Cultures, Vanc/ Zosyn in ER Review of Systems Except as stated in HPI: all other systems reviewed are Neg ROS: 14 point review of systems otherwise negative. Past Family Social History Past Medical History PMH: None Past Surgical History PAST SURGICAL HISTORY: Hysterectomy, Tonsillectomy Allergies: Coded Allergies: No Known Allergies (Unverified , 09/04/16) Family History PAST FAMILY HISTORY: Reviewed. No h/o DM or CAD Social History PAST SOCIAL HISTORY: Occasional alcohol. Negative for tobacco or drugs. Physical Exam Vital Signs Vital Signs Date Time Temp Pulse Resp B/P Pulse Ox O2 Delivery O2 Flow Rate FiO2 09/04/16 22:45 99.6 09/04/16 20:45 109 16 95 Room Air 09/04/16 20:42 112 16 148/72 98 Room Air 09/04/16 19:38 100.2 119 16 134/87 98 Room Air Physical Exam PE: GENERAL: A pleasant middle-aged white female in no acute distress. HEENT: PERRLA, EOMI. No scleral icterus or conjunctival pallor. No lid lag or facial droop. CARDIOVASCULAR: Regular rate and rhythm. No obvious murmurs to auscultation. No chest tenderness to palpation. RESPIRATORY: No obvious rhonchi or wheezing. Clear to auscultation. Breath sounds equal bilaterally. GASTROINTESTINAL: Abdomen soft, mildly distended. BS normal. RLQ surgical incision w/ bleeding and surrounding erythema, tenderness to palpation. LLQ incision w/ no drainage. MUSCULOSKELETAL: Extremities without clubbing, cyanosis, or edema. No obvious deformities. NEUROLOGICAL: Awake, alert and oriented x4. No focal neurologic deficits. Moving both upper and lower extremities spontaneously. Laboratory Laboratory Tests Test 09/04/16 09/04/16 20:54 22:10 White Blood Count 12.3 Red Blood Count 3.82 Hemoglobin 11.0 Hematocrit 33.1 Mean Corpuscular Volume 86.6 Mean Corpuscular Hemoglobin 28.9 Mean Corpuscular Hemoglobin 33.3 Concent Red Cell Distribution Width 13.4 Platelet Count 507 Mean Platelet Volume 6.8 Neutrophils (%) (Auto) 79.3 Lymphocytes (%) (Auto) 12.1 Monocytes (%) (Auto) 7.5 Eosinophils (%) (Auto) 0.7 Basophils (%) (Auto) 0.4 Neutrophils # (Auto) 9.8 Lymphocytes # (Auto) 1.5 Monocytes # (Auto) 0.9 Eosinophils # (Auto) 0.1 Basophils # (Auto) 0.0 CBC Comment DIFF FINAL Differential Comment Prothrombin Time 10.6 Prothromb Time International 1.0 Ratio Activated Partial 25.7 Thromboplast Time Sodium Level 132 Potassium Level 3.9 Chloride Level 99 Carbon Dioxide Level 26.3 Anion Gap 7 Blood Urea Nitrogen 18 Creatinine 1.08 Estimat Glomerular Filtration 51 Rate Random Glucose 121 Lactic Acid Level 1.3 Calcium Level 8.9 Total Bilirubin 0.9 Aspartate Amino Transf 23 (AST/SGOT) Alanine Aminotransferase 21 (ALT/SGPT) Alkaline Phosphatase 88 Total Protein 7.5 Albumin 3.4 Lipase 202 Urine Color YELLOW Urine Turbidity HAZY Urine pH 6.5 Urine Specific [place] 1.018 Urine Protein TRACE Urine Glucose (UA) NEG Urine Ketones NEG Urine Occult Blood MOD Urine Nitrite NEG Urine Bilirubin NEG Urine Urobilinogen LESS THAN 2.0 Urine Leukocyte Esterase LARGE Urine RBC 6 Urine WBC 40 Urine Squamous Epithelial 3 Cells Urine Bacteria FEW Urine Mucus FEW Microscopic Urinalysis Comment CULTURE INDICATED Date/Time Procedure Status Source Growth 09/04/16 22:10 Urine Culture Received Urine Random Urine Pending 09/04/16 21:15 Gram Stain Received Wound Abdomen Pending 09/04/16 21:15 Wound Culture Received Wound Abdomen Pending 09/04/16 21:15 Aerobic Blood Culture Received Blood Peripheral Pending 09/04/16 21:15 Anaerobic Blood Culture Received Blood Peripheral Pending Result Diagram: 09/04/16205309/04/162053 Assessment and Plan Problem List: (1) Sepsis ICD Code: A41.9 Status: Acute (2) Post-operative complication ICD Code: T81.9XXA Status: Acute (3) UTI (urinary tract infection) ICD Code: N39.0 Status: Acute (4) Renal insufficiency ICD Code: N28.9 Status: Acute Assessment and Plan A/P: 1. Sepsis: Temp 100.0, HR 119, WBC 12, [id number] Infection/UTI. S/p Blood/Urine cultures in ER, Vanc/Zosyn. Follow up cultures, continue w/ IV Abx. IVF for hydration. 2. Post-Op Complication: w/ suspected post-op infection, CT Abd/Pelvis w/ postsurgical seroma, possible hematoma/abscess, images reviewed by me. S/p Left Salpingo-Oophorectomy and Lysis of Adhesions for benign pelvic mass on 08/[address] Anton and Dr[address] Burnett. [employer] contacted, Dr. Melgoza covering. Pt will need surgical re-eval. 3. UTI: U/a w UTI. Follow up cultures, continue IV Abx. 4. Renal Insufficiency: Creatinine 1.08, previously 1.13 on 08/26/16, 1.00 on . IVF for hydration, repeat labs in am. 5. DVT Prophylaxis: SCD/Teds. 6. Social work for d/c planning as needed. 7. Case discussed w/ ER physician at length. Physician Certification 2 Midnight Certification Type: Admission for Inpatient Services Order for Inpatient Services The services are ordered in accordance with Medicare regulations or non- Medicare payer requirements, as applicable. In the case of services not specified as inpatient-only, they are appropriately provided as inpatient services in accordance with the 2-midnight benchmark. Estimated LOS (days): 2 days is the estimated time the patient will need to remain in the hospital, assuming treatment plan goals are met and no additional complications. Post-Hospital Plan: Not yet determined Problem Qualifiers (1) Post-operative complication: Vanessa Zaragoza MD Sep 04, 2016 23:23
[2016-09-04] MEDS: SODIUM CHLOR 0.9% 1000 ML INJ 1,000 ML IV SCH (23:48)
[2016-09-05] VITALS (8 sets, daily range): BP systolic 121–139; BP diastolic 58–80; PULSE 82–109; RESP 18; TEMP 97.8–101.4; O2SAT 93–98
[2016-09-05] MEDS: PANTOPRAZOLE SODIUM 40 MG VIAL IV PUSH SCH ×3 (00:18→23:27)
[2016-09-05] MEDS: PIPERACIL-TAZO 4.5 GM PREMIX 100 ML IV SCH ×4 (03:00→20:19)
[2016-09-05 05:17] LABS: AUTOMATED NEUTROPHIL # 7.2 TH/MM3 (1.8-7.7); BASOPHIL % 0.3 % (0.0-2.0); EOSINOPHIL # 0.2 TH/MM3 (0-0.4); EOSINOPHIL % 1.6 % (0.0-4.0); HEMATOCRIT 26.3 % (35.0-46.0); HEMO FLAGS DIFF FINAL; LYMPH % 19.6 % (9.0-44.0); MEAN CELL VOLUME 86.8 FL (80.0-100.0); MEAN CORPUSCULAR HEMOGLOBIN 29.8 PG (27.0-34.0); MEAN CORPUSCULAR HGB CONC 34.3 % (32.0-36.0); MONO % 8.2 % (0.0-8.0); NEUT % 70.3 % (16.0-70.0); PLATELET COUNT 377 TH/MM3 (150-450); RED BLOOD COUNT 3.03 MIL/MM3 (4.00-5.30); RED CELL DISTRIBUTION WIDTH 13.5 % (11.6-17.2); WHITE BLOOD COUNT 10.3 TH/MM3 (4.0-11.0)
[2016-09-05 05:34] LABS: ALKALINE PHOSPHATASE 72 U/L (45-117); ALT (GPT) 16 U/L (10-53); ANION GAP 8 MEQ/L (5-15); AST (GOT) 16 U/L (15-37); BICARBONATE 22.8 MEQ/L (21.0-32.0); BLOOD UREA NITROGEN 14 MG/DL (7-18); CHLORIDE 105 MEQ/L (98-107); GLOMERULAR FILTRATION RATE 64 ML/MIN (>89); POTASSIUM 3.7 MEQ/L (3.5-5.1); SODIUM (NA) 136 MEQ/L (136-145); TOTAL BILIRUBIN ADULT 0.9 MG/DL (0.2-1.0)
[2016-09-05] MEDS: DOCUSATE SODIUM 50 MG/SENNA 8.6 MG TAB PO SCH ×2 (09:00→20:19)
[2016-09-05] MEDS: SODIUM CHLOR 0.9% 1000 ML INJ 1,000 ML IV SCH ×2 (09:14→19:14)
[2016-09-05] MEDS: SODIUM CHLORIDE 0.9% FLUSH 10 ML FLUSH IV FLUSH SCH ×2 (09:14→20:19)
[2016-09-05] MEDS: VANCOMYCIN INJ 2,000 MG in SODIUM CHLORID 0.9% 500 ML INJ 500 ML IV SCH (09:14)
--- NOTE | 2016-09-05 14:37 | HHI.HP ---
HPI Chief Complaint bleeding from incision Date Seen: Sep 05, 2016 Travel History International Travel<30 Days: No Contact w/Intl Traveler<30Days: No Known Affected Area: No History of Present Illness HPI 65 year old female, pt of Dr. Anton, 11d postop lsc converted to ex lap for lso (benign ovarian mass), extensive lety performed by Dr. Burnett on 08/25/16 being admitted for postoperative wound infection. Pt states that she had been doing relatively well until yesterday afternoon; she started to have oozing from rlq lsc incision site when she showered. She placed a dressing on it but it became saturated with movement. She was d/c from hospital on 08/28/16; she has not had a postoperative visit after surgery. she is cleaning wound daily with soap and water. She developed blisters at edges of all adhesives that she feels have crusted over. She states that she has not been able to inspect her incision but she has her inspect it daily; he never mentioned any abnormalities to her. She denies any fevers or purulent drainage. She has had some chills. She did not notice induration of Pfannenstiel incision until this morning when nurse pointed it out. She denies dysuria or frequency. She is having regular bowel movements, denies n/v presently. She does not have pain except with palpation of pf incision. She has not been using any pain medication at home. At presentation to ED, Pt was tachycardic, had wbc count of 12. UA + leuk. She was afebrile. She had a Ct scan that noted a complex fluid collection measuring 12x4cm, possible seroma vs hematoma vs abscess, on anterior abdominal wall. She was started on Vanc and Zosyn. Since admission to room at 1am, she has had to have dressing on rlq changed 3 times in 12 hours. Para: 1 History Past Medical History Narrative Medical denies Obstetric History Obstetric History 1 ftsvd Past Surgical History Narrative Surgical hysterectomy and possible rso in 1997 for menorrhagia and fibroid uterus August 30, 2016 LSC converted to ex-lap for extensive lysis of adhesions and removal of large ovarian mass. tonsillectomy breast biopsy tooth removal Family History Narrative Family History neg for cancer Social History Narrative Social History retired, lives at home with her Alcohol Use: Yes (rare) Tobacco Use: No Substance Abuse: No Allergies-Medications (Allergen,Severity, Reaction): Coded Allergies: No Known Allergies (Unverified , 09/04/16) Home Meds Reported Medications Nutritional Supplements (Only Oil)1 Cap Cap 08/25/16 Multiple Vitamin (Multi-Vitamin Daily)1 Tab Tab1 Tab PO DAILY Ref 0 08/18/16 Review of Systems General / Constitutional: No: Fever, Weight Gain, Other Eyes: No: Diploplia, Blurred Vision, Visual changes, Pain, Photophobia HENT: No: Headaches, Vertigo, Lightheadedness Cardiovascular: No: Irregular Rhythm, Chest Pain or Discomfort, Palpitations, Tachycardia, Syncope, Varicosities, Edema, Cyanosis Respiratory: No: Cough, Short of Breath, Other Gastrointestinal: No: Nausea, Vomiting, Diarrhea Genitourinary: No: Decreased Urinary Output, Oliguria Musculoskeletal: No: Limited ROM, Weakness, Cramping, Edema, Pain Skin: No Rash, Itching (of incisions, bleeding from rlq incision), No Dryness, No Lumps, No Change in Pigmentation, No Change in Nails, No Alopecia, No Lesions Neurologic: No: Weakness, Dizziness, Syncope, Focal Abnormalities, Coordination Problem, Headache, Slurred Speech, Seizures Psychiatric: No: Depression, Suicidal Ideations, Homicidal Ideation Endocrine: No: Heat Intolerance, Cold Intolerance, Polydipsia, Polyuria, Other Physical Exam Vital Signs Date Time Temp Pulse Resp B/P Pulse Ox O2 Delivery O2 Flow Rate FiO2 09/05/16 12:00 99.7 109 18 121/58 93 09/05/16 08:00 99.3 103 18 123/70 94 09/05/16 04:45 97.8 99 18 130/80 98 09/05/16 01:03 98.8 102 18 128/58 96 09/05/16 00:26 99.7 103 18 136/62 97 Room Air 09/04/16 22:45 99.6 09/04/16 20:45 109 16 95 Room Air 09/04/16 20:42 112 16 148/72 98 Room Air 09/04/16 19:38 100.2 119 16 134/87 98 Room Air Narrative GENERAL: Well-nourished, well-developed patient. SKIN: Warm and dry. HEAD: Normocephalic and atraumatic. EYES: No scleral icterus. No injection or drainage. ENT: No nasal drainage noted. Mucous membranes pink. Airway patent. NECK: Supple, trachea midline. No JVD. CARDIOVASCULAR: Regular rate and rhythm without murmurs, gallops, or rubs. RESPIRATORY: Breath sounds equal bilaterally. No accessory muscle use. ABDOMEN/GI: erythema and induration of Pfannenstiel incision; pain to deep palpation of right angle of incision. RLQ trochar site with dressing in place; dressing removed, min dry blood on 4x4's. Echymosis surrounding incision site. Min dark blood expressed. bowel sounds present, no rebound, no guarding EXTREMITIES: No cyanosis or edema. BACK: Nontender without obvious deformity. No CVA tenderness. NEUROLOGICAL: Awake and alert. Motor and sensory grossly within normal limits. Ambulating without difficulty. Normal speech. Data Data Vital Signs Reviewed: Yes Orders Complete Blood Count With Diff (09/04/16 20:37) Comprehensive Metabolic Panel (09/04/16 20:37) Lipase (09/04/16 20:37) Lactic Acid (09/04/16 20:37) Prothrombin Time / Inr (Pt) (09/04/16 20:37) Act Partial Throm Time (Ptt) (09/04/16 20:37) Urinalysis - C+S If Indicated (09/04/16 20:37) Ct Abd/Pel W Iv Contrast(Rout) (09/04/16 20:37) Iv Access Insert/Monitor (09/04/16 20:37) Ecg Monitoring (09/04/16 20:37) Sodium Chlor 0.9% 1000 Ml Inj (Ns 1000 M (09/04/16 20:37) Vancomycin Inj (Vancomycin Inj) (09/04/16 21:00) Piperacil-Tazo 3.375 Gm Premix (Zosyn 3. (09/04/16 21:00) Wound Culture And Gram Stain (09/04/16 21:03) Blood Culture (09/04/16 21:03) Acetaminophen (Tylenol) (09/04/16 21:30) Sodium Chlor 0.9% 1000 Ml Inj (Ns 1000 M (09/04/16 21:57) Iohexol 350 Inj (Omnipaque 350 Inj) (09/04/16 22:16) Urine Culture (09/04/16 22:10) Admit Order (Ed Use Only) (09/04/16 23:01) Vancomycin Consult Pharmacy (Vancomycin (09/04/16 23:15) Piperacil-Tazo 4.5 Gm Premix (Zosyn 4.5 (09/05/16 03:00) Admit To Inpatient (09/04/16 ) Vital Signs (Adult) Q4H (09/04/16 23:14) Activity Oob Ad Melissa (09/04/16 23:14) Hoisting Engineer / Telemetry .CONTINUOUS (09/04/16 23:14) Intake + Output ALEXANDER.QSHIFT (09/04/16 23:14) Diet Regular Basic (09/05/16 Breakfast) Sodium Chlor 0.9% 1000 Ml Inj (Ns 1000 M (09/04/16 23:14) Sodium Chloride 0.9% Flush (Ns Flush) (09/04/16 23:15) Sodium Chloride 0.9% Flush (Ns Flush) (09/05/16 09:00) Ondansetron Inj (Zofran Inj) (09/04/16 23:15) Comprehensive Metabolic Panel (09/05/16 06:00) Complete Blood Count With Diff (09/05/16 06:00) Scd Bilateral/Knee High ALEXANDER.BID (09/04/16 23:14) Jose Luis Bilateral/Knee High ALEXANDER.QSHIFT (09/04/16 23:14) Acetaminophen (Tylenol) (09/04/16 23:15) Acetamin-Hydrocod 325-5 Mg ([place] 5-325 (09/04/16 23:15) Morphine Inj (Morphine Inj) (09/04/16 23:15) Docusate Sodium-Senna (Ana-Colace) (09/05/16 09:00) Magnesium Hydroxide Liq (Milk Of Magnesi (09/04/16 23:15) Sennosides (Senokot) (09/04/16 23:15) Bisacodyl Supp (Dulcolax Supp) (09/04/16 23:15) Lactulose Liq (Lactulose Liq) (09/04/16 23:15) Inpatient Certification (09/04/16 ) Consult Gynecology (09/04/16 ) Pantoprazole Inj (Protonix Inj) (09/05/16 00:00) (Hub Use Only)Inp Phy Cons/Ref (09/04/16 ) Physician Name Changes (09/05/16 ) Vancomycin Inj (Vancomycin Inj) (09/05/16 10:00) Misc. Nursing Information (09/07/16 21:45) Pants, Air-[place] Large Bg (09/05/16 11:16) Labs Laboratory Tests Test 09/04/16 09/04/16 09/05/16 20:54 22:10 03:29 White Blood Count 12.3 10.3 Red Blood Count 3.82 3.03 Hemoglobin 11.0 9.0 Hematocrit 33.1 26.3 Mean Corpuscular Volume 86.6 86.8 Mean Corpuscular Hemoglobin 28.9 29.8 Mean Corpuscular Hemoglobin 33.3 34.3 Concent Red Cell Distribution Width 13.4 13.5 Platelet Count 507 377 Mean Platelet Volume 6.8 7.3 Neutrophils (%) (Auto) 79.3 70.3 Lymphocytes (%) (Auto) 12.1 19.6 Monocytes (%) (Auto) 7.5 8.2 Eosinophils (%) (Auto) 0.7 1.6 Basophils (%) (Auto) 0.4 0.3 Neutrophils # (Auto) 9.8 7.2 Lymphocytes # (Auto) 1.5 2.0 Monocytes # (Auto) 0.9 0.8 Eosinophils # (Auto) 0.1 0.2 Basophils # (Auto) 0.0 0.0 CBC Comment DIFF FINAL DIFF FINAL Differential Comment Prothrombin Time 10.6 Prothromb Time International 1.0 Ratio Activated Partial 25.7 Thromboplast Time Sodium Level 132 136 Potassium Level 3.9 3.7 Chloride Level 99 105 Carbon Dioxide Level 26.3 22.8 Anion Gap 7 8 Blood Urea Nitrogen 18 14 Creatinine 1.08 0.88 Estimat Glomerular Filtration 51 64 Rate Random Glucose 121 111 Lactic Acid Level 1.3 Calcium Level 8.9 7.9 Total Bilirubin 0.9 0.9 Aspartate Amino Transf 23 16 (AST/SGOT) Alanine Aminotransferase 21 16 (ALT/SGPT) Alkaline Phosphatase 88 72 Total Protein 7.5 5.9 Albumin 3.4 2.5 Lipase 202 Urine Color YELLOW Urine Turbidity HAZY Urine pH 6.5 Urine Specific [place] 1.018 Urine Protein TRACE Urine Glucose (UA) NEG Urine Ketones NEG Urine Occult Blood MOD Urine Nitrite NEG Urine Bilirubin NEG Urine Urobilinogen LESS THAN 2.0 Urine Leukocyte Esterase LARGE Urine RBC 6 Urine WBC 40 Urine Squamous Epithelial 3 Cells Urine Bacteria FEW Urine Mucus FEW Microscopic Urinalysis Comment CULTURE INDICATED Date/Time Procedure Status Source Growth 09/04/16 22:10 Urine Culture - Preliminary Resulted Urine Random Urine NO GROWTH IN 24 HOURS. 09/04/16 21:15 Gram Stain - Final Resulted Wound Abdomen 09/04/16 21:15 Wound Culture Resulted Wound Abdomen Pending 09/04/16 21:15 Aerobic Blood Culture - Preliminary Resulted Blood Peripheral NO GROWTH IN 1 DAY 09/04/16 21:15 Anaerobic Blood Culture - Preliminary Resulted Blood Peripheral NO GROWTH IN 1 DAY Assessment/Plan Problem List: (1) Sepsis (2) Post-operative complication (3) S/P oophorectomy Assessment and Plan 65 yo 11 days postop lsc converted to ex-lap for removal of left ovary and extensive lysis of adhesions performed by Dr. Anton and Dr. Burnett. Pt with wound infection and complex fluid collection (seroma vs hematoma vs abscess). Clinically, pt has wound infection; Pfanennstiel skin incision erythematous and indurated; rlq trochar incision with ecchymosis and drainage of blood. She is on broad spectrum antibiotics, Vancomysin and Zosyn. Lactic acid was normal. WBC count normal today, UA with leukocytes, UCx pending. Blood cx negative x 2, Gram stain of wound negative, wound cx pending. If fluid collection is hematoma, this should slowly resolve. If abscess and pt does not improve clinically, may need to drain fluid collection, possible IR or re- operation. FILIPPO- cr 1.08 yesterday, 0.8 today UA with leukocytosis- Ucx pending Diverticulosis on CT- discussed findings with pt; has not been diagnosed with this in the past. Last colonoscopy 9 years ago. Discussed risk of diverticulitis, signs and symptoms of condition. DVT prophy- scds to ble if not ambulating Tegan Melgoza MD Sep 05, 2016 14:37
[2016-09-06] VITALS (7 sets, daily range): BP systolic 128–146; BP diastolic 63–75; PULSE 88–105; RESP 16–20; TEMP 97.5–99.6; O2SAT 92–98
[2016-09-06] MEDS: VANCOMYCIN INJ 2,000 MG in SODIUM CHLORID 0.9% 500 ML INJ 500 ML IV SCH ×2 (03:23→21:54)
[2016-09-06] MEDS: SODIUM CHLOR 0.9% 1000 ML INJ 1,000 ML IV SCH ×2 (03:23→15:14)
[2016-09-06] MEDS: PIPERACIL-TAZO 4.5 GM PREMIX 100 ML IV SCH ×4 (03:23→20:44)
[2016-09-06 05:32] LABS: AUTOMATED NEUTROPHIL # 7.3 TH/MM3 (1.8-7.7); BASOPHIL % 0.4 % (0.0-2.0); EOSINOPHIL # 0.3 TH/MM3 (0-0.4); EOSINOPHIL % 2.5 % (0.0-4.0); HEMATOCRIT 26.4 % (35.0-46.0); HEMO FLAGS DIFF FINAL; LYMPH % 15.7 % (9.0-44.0); LYMPHOCYTE # 1.6 TH/MM3 (1.0-4.8); MEAN CELL VOLUME 85.7 FL (80.0-100.0); MEAN CORPUSCULAR HEMOGLOBIN 29.8 PG (27.0-34.0); MEAN CORPUSCULAR HGB CONC 34.8 % (32.0-36.0); MONO % 7.8 % (0.0-8.0); NEUT % 73.6 % (16.0-70.0); PLATELET COUNT 402 TH/MM3 (150-450); RED BLOOD COUNT 3.09 MIL/MM3 (4.00-5.30); RED CELL DISTRIBUTION WIDTH 13.6 % (11.6-17.2)
[2016-09-06 05:41] LABS: APTT (PATIENT) 26.8 SEC (24.3-30.1); PROTHROMBIN TIME - PATIENT 11.1 SEC (9.8-11.6)
[2016-09-06 05:55] LABS: ANION GAP 7 MEQ/L (5-15); AST (GOT) 20 U/L (15-37); BICARBONATE 24.8 MEQ/L (21.0-32.0); BLOOD UREA NITROGEN 9 MG/DL (7-18); CHLORIDE 105 MEQ/L (98-107); GLOMERULAR FILTRATION RATE 63 ML/MIN (>89); POTASSIUM 3.6 MEQ/L (3.5-5.1); SODIUM (NA) 137 MEQ/L (136-145)
[2016-09-06 05:59] LABS: ALKALINE PHOSPHATASE 84 U/L (45-117); ALT (GPT) 19 U/L (10-53); TOTAL BILIRUBIN ADULT 0.9 MG/DL (0.2-1.0)
[2016-09-06] MEDS: SODIUM CHLORIDE 0.9% FLUSH 10 ML FLUSH IV FLUSH SCH ×2 (09:00→20:44)
[2016-09-06] MEDS: DOCUSATE SODIUM 50 MG/SENNA 8.6 MG TAB PO SCH ×2 (09:00→20:45)
[2016-09-06] MEDS: PANTOPRAZOLE SODIUM 40 MG VIAL IV PUSH SCH ×2 (11:30→23:19)
[2016-09-06] MEDS ORDERED: LIDOCAINE 1%/EPINEPHrine 1:100,000 SOLN 20 ML VIAL ONE (14:16)
[2016-09-06] MEDS ORDERED: MIDAZOLAM HCL 2 MG/2 ML VIAL ONE ×2 (14:19→15:00)
[2016-09-06] MEDS ORDERED: fentaNYL CITRATE 250 MCG/5 ML AMP ONE (14:19)
--- NOTE | 2016-09-06 15:07 | HHI.PR ---
Subjective Remarks Feeling better today Tolerating her diet. Objective Vital Signs Date Time Temp Pulse Resp B/P Pulse Ox O2 Delivery O2 Flow Rate FiO2 09/06/16 12:00 98.2 99 16 132/68 95 09/06/16 08:00 99.4 97 16 128/63 93 09/06/16 04:16 97.5 99 18 142/75 98 09/05/16 23:49 100.1 109 18 131/69 98 09/05/16 20:21 101.4 109 18 139/66 96 09/05/16 20:00 109 I/O 09/05/16 09/05/16 09/05/16 09/06/16 09/06/16 09/06/16 07:00 15:00 23:00 07:00 15:00 23:00 Intake Total 916 ml 1094 ml 962 ml 897 ml 0 ml Output Total 1 ml 500 ml Balance 916 ml 1093 ml 962 ml 897 ml -500 ml Intake Oral 280 ml 240 ml 480 ml 0 ml IV Total 636 ml 854 ml 482 ml 897 ml Output Urine Total 500 ml Stool Total 1 ml # Voids 2 2 2 2 # Bowel Movements 0 0 Result Diagram: 09/06/16 0435 09/06/16 0435 Other Results chest is clear cv rrr abd is soft and non tender. incision is slg red and indurated on the right. ext no cce Assessment and Plan Assessment and Plan Post op pelvic abscess. plan to have IR drain this today. she did have her first fever and will continue the antibiotics. Mane Anton MD Sep 06, 2016 15:07
--- NOTE | 2016-09-06 15:57 | RADRPT ---
EXAM DATE/TIME: 09/06/2016 14:57 [facility] COMPARISON: No previous studies available for comparison. INDICATIONS : Post op fluid collection SEDATION TIME: 15 minutes MEDICATION(S): 1.) 3 mg midazolam (Versed) IV 2.) 150 mcg fentanyl (Sublimaze) IV DEVICE(S): 1.) 10 Fr Skater Total volume of 10 cc of cloudy, red fluid was removed. Fluid was sent for laboratory ordered studies. MEDICAL HISTORY : Pelvic mass SURGICAL HISTORY : Hysterectomy. Pelvic mass removed ENCOUNTER: Initial ACUITY: 1 day PAIN SCORE: 2/10 LOCATION: pelvis PROCEDURE: 1.) Conscious sedation with continuous EKG and oximetry monitoring. PROCEDURE : 1. CT guided drainage of the lower abdominal fluid collection 2. Conscious sedation with continuous EKG and oximetry monitoring. The risks, benefits and alternatives to the procedure were explained and verbal and written consent w as obtained. Using automated exposure control and adjustment of the mA and/or kV according to patient size, radiation dose was kept as low as reasonably achievable to obtain optimal diagnostic quality i mages. The site was prepped in sterile fashion. Full sterile technique was used, including cap, ma sk, sterile gloves and gown and a large sterile sheet. Hand hygiene and 2% chlorhexidine and/or beta dine/alcohol prep was utilized per protocol for cutaneous antisepsis. The skin and subcutaneous tiss ues were infiltrated with local anesthetic solution. DICOM format image data is available electronic ally for review and comparison. Under CT guidance 10-Chinese catheter was placed in the abdominal fluid collection just deep to rectus . This is partially slightly old blood. Material was sent for Gram stain and culture. Catheter can be removed if Gram stain is negative. The patient tolerated the procedure well and there were no complications. Conscious sedation was per formed with the prescribed dosages and duration as above in the presence of an independent trained ra diology nurse to assist in the monitoring of the patient. EKG and oximetry remained stable throughou t the procedure. The patient tolerated the procedure well and there were no complications. The patient was sent to pos t anesthesia recovery in stable condition. CONCLUSION: Uncomplicated CT guided drainage and presumed rectus hematoma . If Gram stain is negative catheter can be removed. Chavo Arce MD FACR on September 06, 2016 at 15:54 Board Certified Radiologist. This report was verified electronically.
[2016-09-07] VITALS: BP 121/63; PULSE 99; RESP 18; TEMP 100; O2SAT 94
[2016-09-07] MEDS: SODIUM CHLOR 0.9% 1000 ML INJ 1,000 ML IV SCH ×3 (03:55→21:59)
[2016-09-07] MEDS: PIPERACIL-TAZO 4.5 GM PREMIX 100 ML IV SCH ×4 (03:55→21:59)
[2016-09-07 04:00] VITALS: TEMP 98.8
[2016-09-07 08:00] VITALS: BP_SYST 123; BP_SYST 138; BP_DIAS 57; BP_DIAS 78; PULSE 79; PULSE 93; RESP 19; RESP 20; TEMP 97.7; TEMP 98.2; O2SAT 96; O2SAT 97
[2016-09-07] MEDS: SODIUM CHLORIDE 0.9% FLUSH 10 ML FLUSH IV FLUSH SCH ×2 (08:40→21:00)
[2016-09-07] MEDS: DOCUSATE SODIUM 50 MG/SENNA 8.6 MG TAB PO SCH ×2 (08:43→21:00)
[2016-09-07] MEDS: PANTOPRAZOLE SODIUM 40 MG VIAL IV PUSH SCH (11:27)
[2016-09-07 12:00] VITALS: BP 112/62; PULSE 86; RESP 19; TEMP 96.9; O2SAT 95
--- NOTE | 2016-09-07 14:16 | HHI.PR ---
Subjective Remarks Feeling better today. Had a tube placed yesterday. Dr Arce was very good Tolerating her diet, but now I am on a heart healthy diet and it sucks. I really want a regular diet Objective Vital Signs Date Time Temp Pulse Resp B/P Pulse Ox O2 Delivery O2 Flow Rate FiO2 09/07/16 12:00 96.9 86 19 112/62 95 09/07/16 08:00 98.2 93 20 123/57 96 09/07/16 04:00 98.8 09/07/16 00:00 100.0 99 18 121/63 94 09/06/16 20:00 99.6 105 18 134/66 96 09/06/16 16:00 93 20 146/74 96 09/06/16 15:45 88 20 143/72 98 09/06/16 15:30 98.1 95 20 139/73 92 I/O 09/06/16 09/06/16 09/06/16 09/07/16 09/07/16 09/07/16 07:00 15:00 23:00 07:00 15:00 23:00 Intake Total 897 ml 0 ml 880 ml 1049 ml 120 ml Output Total 500 ml 475 ml 45 ml Balance 897 ml -500 ml 405 ml 1004 ml 120 ml Intake Oral 0 ml 480 ml 120 ml 120 ml IV Total 897 ml 400 ml 929 ml Output Urine Total 500 ml 450 ml Drainage Total 25 ml 45 ml # Voids 2 3 2 # Bowel Movements 0 3 2 Result Diagram: 09/06/16 0435 09/07/16 0630 Other Results Chest is clear CV RRR Abd is soft and non tender, Incisions are looking better and the erythema is resolving nicely. Ext Assessment and Plan Assessment and Plan Post op pelvic abscess. plan to have IR drain this today. she did have her first fever and will continue the antibiotics. Mane Anton MD Sep 07, 2016 14:16
[2016-09-07] MEDS: VANCOMYCIN INJ 2,000 MG in SODIUM CHLORID 0.9% 500 ML INJ 500 ML IV SCH (15:18)
[2016-09-07 16:00] VITALS: BP 112/56; PULSE 67; RESP 19; TEMP 97.8; O2SAT 95
[2016-09-07 20:00] VITALS: BP 138/62; PULSE 95; RESP 20; TEMP 98.7; O2SAT 98
[2016-09-08] VITALS: BP 129/60; PULSE 96; RESP 20; TEMP 99.3; O2SAT 96
[2016-09-08] MEDS: PANTOPRAZOLE SODIUM 40 MG VIAL IV PUSH SCH ×2 (00:16→11:49)
[2016-09-08 04:00] VITALS: BP 134/66; PULSE 105; RESP 20; TEMP 98.6; O2SAT 96
[2016-09-08] MEDS: PIPERACIL-TAZO 4.5 GM PREMIX 100 ML IV SCH ×2 (04:43→08:38)
[2016-09-08] MEDS: SODIUM CHLOR 0.9% 1000 ML INJ 1,000 ML IV SCH ×2 (07:14→15:51)
[2016-09-08 08:00] VITALS: BP 134/60; PULSE 79; RESP 18; TEMP 98.1; O2SAT 97
[2016-09-08] MEDS: SODIUM CHLORIDE 0.9% FLUSH 10 ML FLUSH IV FLUSH SCH (08:31)
[2016-09-08] MEDS: DOCUSATE SODIUM 50 MG/SENNA 8.6 MG TAB PO SCH (08:38)
[2016-09-08] MEDS ORDERED: PHARMACY ORDERED LAB ONE (09:45)
--- NOTE | 2016-09-08 09:47 | HHI.PR ---
Subjective Remarks Feeling better and ready to go home. I feel so much better. Objective Vital Signs Date Time Temp Pulse Resp B/P Pulse Ox O2 Delivery O2 Flow Rate FiO2 09/08/16 08:00 98.1 79 18 134/60 97 09/08/16 04:00 98.6 105 20 134/66 96 09/08/16 00:00 99.3 96 20 129/60 96 09/07/16 20:00 98.7 95 20 138/62 98 09/07/16 16:00 97.8 67 19 112/56 95 09/07/16 12:00 96.9 86 19 112/62 95 I/O 09/07/16 09/07/16 09/07/16 09/08/16 09/08/16 09/08/16 07:00 15:00 23:00 07:00 15:00 23:00 Intake Total 1049 ml 1705 ml 1211 ml 1048 ml Output Total 45 ml 600 ml 20 ml Balance 1004 ml 1105 ml 1211 ml 1028 ml Intake Oral 120 ml 880 ml 240 ml 120 ml IV Total 929 ml 825 ml 971 ml 928 ml Output Urine Total 600 ml Drainage Total 45 ml 20 ml # Voids 2 2 2 # Bowel Movements 2 1 3 Result Diagram: 09/06/16 0435 09/08/16 0533 Other Results Abd is soft and non tender. incisions look much better. pulled the drain. had 70cc out since insertion. Ext no CCE Assessment and Plan Assessment and Plan Post op pelvic hematoma, I looked at the plate today and it is growing some staph epidermitis.. Celaya to d/c the IV abs today and start bactrim Consider d/c home this afternoon Anemia will start fe when she goes home. Will follow up on this. Discussed Condition With pt and Mane Thorpe MD Sep 08, 2016 09:47
[2016-09-08] MEDS ORDERED: BACT800T5 PO (09:55)
--- NOTE | 2016-09-08 09:56 | HHI.DCPOC ---
Discharge Care Plan Diagnosis: (1) Post-operative complication (2) Wound infection after surgery Report Symptoms to Your Doctor -Temperature above 100.5 degrees -Redness, of incision or excessive or foul smelling drainage -Unusual pain or calf pain -Increased vaginal bleeding -Painful or difficulty urinating -Feelings of extreme sadness or anxiety after 2 weeks Goals to Promote Your Health * To prevent worsening of your condition and complications * To maintain your health at the optimal level Directions to Meet Your Goals Take your medications as prescribed Follow your dietary instruction Follow activity as directed Ensure plenty of rest for recovery Drink fluids for hydration Keep your appointments as scheduled Take your immunizations and boosters as scheduled If your symptoms worsen call your PCP, if no PCP go to Urgent Care Center or Emergency Room Smoking is Dangerous to Your Health. Avoid second hand smoke Call the 24-hour crisis hotline for domestic abuse at Mane Anton MD Sep 08, 2016 09:56
[2016-09-08] MEDS ORDERED: SULFAMETHOXAZOLE-TRIMETHOPRIM DS 800-160 MG TAB PO SCH (10:00)
[2016-09-08 12:00] VITALS: BP 136/68; PULSE 84; RESP 19; TEMP 98.5; O2SAT 100
--- NOTE | 2016-09-16 17:02 | HHI.DS ---
Discharge Summary Admission Date Sep 04, 2016 at 23:02 Discharge Date: Sep 08, 2016 Admitting Diagnosis Post surgical complication (1) Sepsis (2) Post-operative complication (3) UTI (urinary tract infection) (4) Renal insufficiency Brief History pt presented to er with complaints of pain, erythematous, swelling, drainage and bleeding of 11 day post op incision Hospital Course Pt was admitted to r/o sepsis, and evaluate seroma vs hematoma vs abscess. She was started on broad spectrum iv antibiotics. IR placed drain at it was thought to be a hematoma. IV antibiotic continued, drain was pulled the next day. Pt switched to oral antibiotic and sent home. Cultures (wound, peripheral, urine) were negative. Pt Condition on Discharge: Good Discharge Disposition: Discharge Home Discharge Instructions DIET: Follow Instructions for: As Tolerated, No Restrictions Speech Therapy-Diet Recommenda: Regular Activities you can perform: Regular-No Restrictions Additional Activity Instructio: take it easy no driving for one week. Follow up Referrals: [facility] - 2 Weeks @ [facility] [place] New Medications: Sulfamethoxazole-Trimethoprim (Bactrim DS) 800-160 Mg Tab 1 TAB PO BID Infection #20 Ref 0 TAB Continued Medications: Multiple Vitamin (Multi-Vitamin Daily) 1 Tab Tab 1 TAB PO DAILY Nutritional Supplement Ref 0 TAB Nutritional Supplements ([place] Oil) 1 Cap Cap Winter Burris Sep 16, 2016 17:02 Winter Burris Sep 16, 2016 17:02
== END 2016-09-08 18:14 | disposition home or self-care (01) | DRG 862 ==
LOC: NEPE 19:36 → NEDA 23:02 → N07A 09-05 00:50
PROVIDERS: ADMIT Obstetrics & Gynecology; ATTEND Obstetrics & Gynecology
PROC: 0K9L30Z Drainage of Left Abdomen Muscle with Drainage Device, Percutaneous Approach (ICD-10-PCS; principal; 2016-09-06)
DX: T81.4XXA Infection following a procedure, initial encounter (principal); A41.9 Sepsis, unspecified organism; M96.841 Postprocedural hematoma of a musculoskeletal structure following other procedure; N73.9 Female pelvic inflammatory disease, unspecified; D64.9 Anemia, unspecified; K57.30 Diverticulosis of large intestine without perforation or abscess without bleeding
CPT/HCPCS: 74177; 75989; 76937; 80053; 81001; 82565; 83605; 83690; 85025; 85610; 85730; 86403; 87040; 87070; 87086; 87205; 96374; 96375; 99152; C1729; C9113; J2250; J2543; J3010; J3370; J7030; J7040; J7050; Q9967